=== PATIENT | female | born 1955 | race Caucasian/White ===

== ENCOUNTER 2023-03-01 06:35 | Inpatient (IN) | payer MEDICARE, MEDICAID ==
[2023-02-20 11:45] LABS: BASOPHILS % (AUTO) 0.4 % (0-1); EOSINOPHILS # (AUTO) 0.1 X10'3 (0-0.9); EOSINOPHILS % (AUTO) 0.9 % (0-6); LYMPHOCYTES # (AUTO) 1.6 X10'3 (1.1-4.8); MEAN CORPUSCULAR HEMOGLOBIN 31.1 PG (27.0-31.0); MEAN CORPUSCULAR VOLUME 94.3 FL (78-98); MEAN PLATELET VOLUME 8.5 FL (7.4-10.4); MONOCYTES # (AUTO) 0.7 X10'3 (0-0.9); MONOCYTES % (AUTO) 11.1 % (2-12); NEUTROPHILS # (AUTO) 4.1 X10'3 (1.8-7.7); NEUTROPHILS % (AUTO) 62.6 % (42-75); PRE OP HEMATOCRIT 42.4 % (35.0-45.0); PRE OP PLATELET COUNT 289 X10'3 (140-440); PRE OP WHITE BLOOD COUNT 6.6 10'3 (4.8-10.8); RED CELL DISTRIBUTION WIDTH 13.5 % (11.5-14.5)
[2023-02-20 12:08] LABS: ALBUMIN 3.9 G/DL (3.4-5.0); ALBUMIN/GLOBULIN RATIO 1.2 (1.1-1.5); ALKALINE PHOSPHATASE 58 IU/L (46-116); BLOOD UREA NITROGEN 26 MG/DL (7-18); BUN/CREATININE RATIO 27.1 (10.0-20.0); CALCIUM 9.2 MG/DL (8.5-10.1); CHLORIDE 102 MMOL/L (99-107); CREATININE 0.96 MG/DL (0.40-0.90); PRE OP ALT 24 U/L (30-65); PRE OP ANION GAP 8 (8-16); PRE OP AST 21 U/L (10-37); PRE OP BILIRUB, TOTAL 0.5 MG/DL (0.0-1.0); PRE OP GLUCOSE 87 MG/DL (70-104); PRE OP SODIUM 137 MMOL/L (135-145); THYROID STIMULATING HORMONE 0.99 ulU/ml (0.34-4.50); TOTAL CARBON DIOXIDE 27.2 MMOL/L (24-32); TOTAL PROTEIN 7.2 G/DL (6.4-8.2); eGFR 58 ML/MIN
[2023-02-20 12:19] LABS: PRE OP POTASSIUM 3.3 MMOL/L (3.4-5.1)
[2023-03-01] VITALS (28 sets, daily range): BP systolic 93–181; BP diastolic 52–85; PULSE 65–87; RESP 10–21; TEMP 97.4–98.4; O2SAT 94–100
[~2023-03-01] VITALS: Ht 162.6 cm; Wt 77.1 kg
[~2023-03-01 06:35] MED LIST: BUPR-230 PO; ESTR0.6261 PO; LEVO112T5 PO; LISI1TAB49 PO; ROBDML PO; [UNRECOGNIZED DRUG - CODE] PO; cefazolin 2gm/D5W 100mL 100 ML IV ONE; famotidine 20mg tablet PO ONE; ringers solution, lacted 1,000 ML IV SCH; tranexamic acid inj. 1,000 MG in normal saline IV soln 100ML IV ONE; vancomycin 1,500 MG in NS 300ml IV soln IV ONE
[2023-03-01] MEDS ORDERED: morphine 10mg/ml inj. ONE (07:25)
[2023-03-01] MEDS ORDERED: epiNEPHrine 1 mg/ml inj ONE (07:25)
[2023-03-01] MEDS ORDERED: ROPIVAcaine 0.5% (5mg/ml) 30ml vial ONE ×2 (07:26→11:49)
[2023-03-01] MEDS ORDERED: vancomycin 1,000mg inj ONE (07:26)
[2023-03-01] MEDS ORDERED: fentaNYL/PF 50MCG/1 ML 2ML syringe ONE (08:37)
[2023-03-01] MEDS ORDERED: MIDAZolam 1 MG/ML 5ML VIAL ONE (08:38)
[2023-03-01] MEDS ORDERED: propofol inj 20 ML IV ONE ×3 (08:39→10:36)
[2023-03-01] MEDS ORDERED: BUPIVAcaine/dex-water/PF 7.5 mg/ml 2ml ampul ONE (08:42)
[2023-03-01] MEDS ORDERED: midazolam 1 mg/ML 2ml injection ONE (09:14)
[2023-03-01] MEDS ORDERED: morphine 2 MG/ML inj. syringe IV PRN (10:30)
[2023-03-01] MEDS ORDERED: ondansetron/PF 4mg/2ml inj IV PRN ×2 (10:30→12:05)
[2023-03-01] MEDS ORDERED: proCHLORperazine 10 MG/2 ml inj IV PRN (10:30)
[2023-03-01] MEDS ORDERED: ROPIVAcaine 0.2%/PF PUMP/bolus 545 ML ADDCANAL SCH (10:30)
[2023-03-01] MEDS ORDERED: ringers solution, lacted 1,000 ML IV SCH (10:30)
[2023-03-01] MEDS ORDERED: morphine 4 MG/ML inj SYRINge IV PRN (10:30)
[2023-03-01] MEDS ORDERED: ROPIVAcaine 0.2% (10 MG/5 ML) BOLUS INJECTION ADDCANAL PRN (10:30)
[2023-03-01] MEDS ORDERED: meperidine/PF 25mg/ml syringe IV PRN ×3 (10:30)
[2023-03-01] MEDS ORDERED: naloxone 0.4 mg/ml inj IV PRN (12:05)
[2023-03-01] MEDS ORDERED: diphenhydrAMINE 25mg capsule PO PRN ×2 (12:05)
[2023-03-01] MEDS ORDERED: acetaminophen 325mg tablet PO PRN (12:05)
[2023-03-01] MEDS ORDERED: HYDROmorphone inj. 0.5 MG/0.5 ML DISP.SYRIN IV PRN (12:05)
[2023-03-01] MEDS ORDERED: magnesium hydroxide 30ml (MOM) UD suspension PO PRN (12:05)
[2023-03-01] MEDS ORDERED: bisacodyl 10mg suppository rectal RC PRN (12:05)
[2023-03-01] MEDS ORDERED: guaiFENesin/DM 10ml UD oral syrup PO PRN (12:25)
--- NOTE | 2023-03-01 13:03 | NUR ---
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 AWAITING CALL BACK. Addendum: 03/01/23 at 1304 by Holland Hargrove - BIB RN Amended: Links added.
[2023-03-01] MEDS: oxyCODONE IR 5mg (immed. release) tablet PO PRN ×2 (14:39→20:05)
[2023-03-01] MEDS ORDERED: tranexamic acid inj. 770 MG in normal saline 100ml IV soln 92.3 ML IV ONE (15:00)
--- NOTE | 2023-03-01 15:04 | NUR ---
ALL CRITERIA FOR TRANSFER TO THE FLOOR HAS BEEN MET. MEDICATED FOR PAIN AND RN AWARE PATIENT IS STILL EXPERIENCING PAIN. POSITIONED TO COMFORT. PATIENT WITH DRESSING CDI. NEW POWDER PACK IN PLACE AND MEDICATED. Addendum: 03/01/23 at 1534 by Holland Hargrove - BIB RN Amended: Links added.
[2023-03-01] MEDS: gabapentin 300mg capsule PO SCH ×2 (16:47→20:05)
[2023-03-01] MEDS: acetaminophen 325mg tablet PO SCH ×2 (16:48→20:04)
[2023-03-01] MEDS: ceFAZolin/D5W- 1GM premix 50 ML IV SCH (17:13)
[2023-03-01] MEDS: potassium Cl 20mEq in NS 1,000 ML IV SCH ×2 (17:13→20:05)
--- NOTE | 2023-03-01 18:30 | NUR ---
Patient in room ORTH[facility] 4021. I have received report from BIB Villanueva and had the opportunity to ask questions and assume patient care.
--- NOTE | 2023-03-01 18:40 | NUR ---
Report to Marie MCCARTNEY
[2023-03-01] MEDS ORDERED: vancomycin/NS 1 GM ADD-VANTAGE 250 ML IV SCH (20:00)
[2023-03-01] MEDS: buPROPion SR 150mg tablet PO SCH (20:00)
[2023-03-01] MEDS: sennosides 8.6mg tablet PO SCH (20:05)
[2023-03-02] VITALS (7 sets, daily range): BP systolic 131–139; BP diastolic 68–78; PULSE 76–105; RESP 15–18; TEMP 97.4–99.3; O2SAT 96–100
[2023-03-02] MEDS: oxyCODONE IR 5mg (immed. release) tablet PO PRN ×6 (00:03→20:47)
[2023-03-02] MEDS: ceFAZolin/D5W- 1GM premix 50 ML IV SCH (00:09)
[2023-03-02] MEDS: acetaminophen 325mg tablet PO SCH ×4 (02:27→20:44)
[2023-03-02] MEDS: potassium Cl 20mEq in NS 1,000 ML IV SCH (04:32)
--- NOTE | 2023-03-02 06:10 | NUR ---
Problems reprioritized. Patient report given, questions answered & plan of care reviewed with SHANA Graves.
[2023-03-02] MEDS: gabapentin 300mg capsule PO SCH ×3 (07:56→20:42)
[2023-03-02] MEDS: levoTHYROXINE 112mcg tablet PO SCH (07:56)
[2023-03-02] MEDS: lisinopril 10 MG tablet PO SCH (07:57)
[2023-03-02] MEDS: HYDROchlorothiazide 12.5mg capsule PO SCH (07:58)
[2023-03-02] MEDS ORDERED: estrogen, conjugated 0.625mg tablet PO SCH (08:00)
[2023-03-02] MEDS: buPROPion SR 150mg tablet PO SCH ×2 (08:00→20:00)
[2023-03-02] MEDS: METHYLPHENIDATE 5 MG PO SCH (08:00)
[2023-03-02] MEDS: enoxaparin 40mg/0.4ml syringe SQ SCH (08:00)
--- NOTE | 2023-03-02 08:17 | NUR ---
Per EMR pt POD #1 s/p left TKA. Written high protein education with ONS coupons and RD contact information mailed to patient's address found in EMR d/t short staffing. Will continue to follow and provide verbal education as able. Addendum: 03/02/23 at [address] Amended: Links added.
--- NOTE | 2023-03-02 13:00 | NUR ---
AUTOMOTIVE PROJECT ENGINEER documentation: I have reviewed and agree with all interventions, assessments performed and documented by Ely SALDANA.
--- NOTE | 2023-03-02 13:00 | NUR ---
COPY ROOM TECHNICIAN Medication Administration: For this medication-pass time frame, all medication were reviewed, dispensed, administered and documented per hospital policy by Ely SALDANA .
[2023-03-02 13:53] LABS: BASOPHILS % (AUTO) 0.1 % (0-1); EOSINOPHILS % (AUTO) 0 % (0-6); HEMATOCRIT 39.5 % (35.0-45.0); HEMOGLOBIN 12.9 g/dl (12.0-16.0); LYMPHOCYTES # (AUTO) 0.7 X10'3 (1.1-4.8); LYMPHOCYTES % (AUTO) 10.4 % (21-51); MEAN CORPUSCULAR HEMOGLOBIN 30.9 PG (27.0-31.0); MEAN CORPUSCULAR HGB CONC 32.8 g/dL (33.0-36.5); MEAN CORPUSCULAR VOLUME 94.2 FL (78-98); MEAN PLATELET VOLUME 8.8 FL (7.4-10.4); NEUTROPHILS # (AUTO) 5.4 X10'3 (1.8-7.7); NEUTROPHILS % (AUTO) 75.5 % (42-75); PLATELET COUNT 241 X10'3 (140-440); RED BLOOD COUNT 4.19 X10'6 (4.20-5.60); RED CELL DISTRIBUTION WIDTH 13.1 % (11.5-14.5); WHITE BLOOD COUNT 7.1 X10'3 (4.5-11.0)
[2023-03-02 14:07] LABS: ALANINE AMINOTRANSFERASE 22 U/L (12-78); ALBUMIN/GLOBULIN RATIO 0.9 (1.1-1.5); ALKALINE PHOSPHATASE 63 IU/L (46-116); ANION GAP 8 (8-16); ASPARTATE AMINO TRANSFERASE 19 U/L (10-37); BILIRUBIN,TOTAL 0.8 MG/DL (0.1-1.0); BLOOD UREA NITROGEN 8 MG/DL (7-18); BUN/CREATININE RATIO 8.6 (10.0-20.0); CALCIUM 8.5 MG/DL (8.5-10.1); CHLORIDE 100 MMOL/L (99-107); CREATININE 0.93 MG/DL (0.40-0.90); GLUCOSE 124 MG/DL (70-104); POTASSIUM 3.6 MMOL/L (3.5-5.1); SODIUM 135 MMOL/L (135-145); TOTAL CARBON DIOXIDE 27.2 MMOL/L (24-32); TOTAL PROTEIN 6.2 G/DL (6.4-8.2); eCRCL 50 ML/MIN; eGFR 60 ML/MIN
--- NOTE | 2023-03-02 18:40 | NUR ---
Patient in room ORTHO 4021. I have received report from JR MCCARTNEY and had the opportunity to ask questions and assume patient care.
[2023-03-02] MEDS: sennosides 8.6mg tablet PO SCH (20:46)
[2023-03-02] MEDS: celeCOXIB 100mg capsule PO SCH (20:55)
[2023-03-03] MEDS: oxyCODONE IR 5mg (immed. release) tablet PO PRN ×3 (02:18→14:49)
[2023-03-03] MEDS: acetaminophen 325mg tablet PO SCH ×2 (02:18→07:36)
[2023-03-03 06:30] LABS: WHITE BLOOD COUNT 7.6 X10'3 (4.5-11.0)
--- NOTE | 2023-03-03 06:32 | NUR ---
Problems reprioritized. Patient report given, questions answered & plan of care reviewed with JR SALDANA.
[2023-03-03 06:33] LABS: BASOPHILS % (AUTO) 0.1 % (0-1); EOSINOPHILS % (AUTO) 0.1 % (0-6); HEMATOCRIT 36.6 % (35.0-45.0); HEMOGLOBIN 12.4 g/dl (12.0-16.0); LYMPHOCYTES # (AUTO) 0.7 X10'3 (1.1-4.8); LYMPHOCYTES % (AUTO) 9.7 % (21-51); MEAN CORPUSCULAR HEMOGLOBIN 31.8 PG (27.0-31.0); MEAN CORPUSCULAR HGB CONC 33.8 g/dL (33.0-36.5); MEAN CORPUSCULAR VOLUME 94.3 FL (78-98); MEAN PLATELET VOLUME 8.4 FL (7.4-10.4); MONOCYTES # (AUTO) 1.1 X10'3 (0-0.9); MONOCYTES % (AUTO) 14.1 % (2-12); NEUTROPHILS # (AUTO) 5.8 X10'3 (1.8-7.7); PLATELET COUNT 220 X10'3 (140-440); RED BLOOD COUNT 3.88 X10'6 (4.20-5.60); RED CELL DISTRIBUTION WIDTH 13.4 % (11.5-14.5)
[2023-03-03 06:52] LABS: ALANINE AMINOTRANSFERASE 24 U/L (12-78); ALBUMIN 2.7 G/DL (3.4-5.0); ALBUMIN/GLOBULIN RATIO 0.8 (1.1-1.5); ALKALINE PHOSPHATASE 60 IU/L (46-116); ANION GAP 6 (8-16); ASPARTATE AMINO TRANSFERASE 23 U/L (10-37); BILIRUBIN,TOTAL 0.7 MG/DL (0.1-1.0); BLOOD UREA NITROGEN 13 MG/DL (7-18); BUN/CREATININE RATIO 12.5 (10.0-20.0); CALCIUM 8.9 MG/DL (8.5-10.1); CHLORIDE 101 MMOL/L (99-107); CREATININE 1.04 MG/DL (0.40-0.90); GLUCOSE 109 MG/DL (70-104); POTASSIUM 3.5 MMOL/L (3.5-5.1); SODIUM 137 MMOL/L (135-145); TOTAL CARBON DIOXIDE 30.1 MMOL/L (24-32); TOTAL PROTEIN 6.2 G/DL (6.4-8.2); eCRCL 45 ML/MIN; eGFR 53 ML/MIN
[2023-03-03 07:00] VITALS: BP 105/67; PULSE 95; RESP 18; TEMP 97.6; O2SAT 94
[2023-03-03] MEDS: enoxaparin 40mg/0.4ml syringe SQ SCH (07:29)
[2023-03-03] MEDS: buPROPion SR 150mg tablet PO SCH ×2 (07:30→20:00)
[2023-03-03] MEDS: HYDROchlorothiazide 12.5mg capsule PO SCH (07:30)
[2023-03-03] MEDS: celeCOXIB 100mg capsule PO SCH ×2 (07:30→20:54)
[2023-03-03] MEDS: lisinopril 10 MG tablet PO SCH (07:31)
[2023-03-03] MEDS: gabapentin 300mg capsule PO SCH (07:32)
[2023-03-03] MEDS: levoTHYROXINE 112mcg tablet PO SCH (07:32)
[2023-03-03] MEDS: estrogen, conjugated 0.625mg tablet PO SCH (07:37)
[2023-03-03] MEDS: METHYLPHENIDATE 5 MG PO SCH (07:38)
[2023-03-03 10:00] VITALS: BP 121/75; PULSE 78; RESP 15; TEMP 98.3; O2SAT 98
[2023-03-03] MEDS ORDERED: acetaminophen 325mg tablet PO PRN (12:05)
[2023-03-03] MEDS ORDERED: gabapentin 300mg capsule PO SCH (14:32)
[2023-03-03 15:00] VITALS: BP 119/70; PULSE 70; RESP 17; TEMP 97; O2SAT 97
--- NOTE | 2023-03-03 15:00 | NUR ---
JOCKEY VALET Medication Administration: For this medication-pass time frame, all medication were reviewed, dispensed, administered and documented per hospital policy by Ely SALDANA.
[2023-03-03 18:00] VITALS: BP 128/51; PULSE 94; RESP 13; TEMP 98.7; O2SAT 98
--- NOTE | 2023-03-03 18:00 | NUR ---
Patient in room ORTHO 4021. I have received report from SHANA Graves and had the opportunity to ask questions and assume patient care.
[2023-03-03 20:00] VITALS: RESP 18; O2SAT 98
[2023-03-03] MEDS: sennosides 8.6mg tablet PO SCH (20:53)
[2023-03-03 22:00] VITALS: BP 98/41; PULSE 91; RESP 16; TEMP 98.1; O2SAT 94
[2023-03-04 06:00] VITALS: BP 125/64; PULSE 89; RESP 16; TEMP 98.8; O2SAT 98
[2023-03-04 06:05] LABS: ALANINE AMINOTRANSFERASE 19 U/L (12-78); ALBUMIN 2.4 G/DL (3.4-5.0); ALBUMIN/GLOBULIN RATIO 0.6 (1.1-1.5); ALKALINE PHOSPHATASE 59 IU/L (46-116); ANION GAP 7 (8-16); ASPARTATE AMINO TRANSFERASE 15 U/L (10-37); BILIRUBIN,TOTAL 0.6 MG/DL (0.1-1.0); BLOOD UREA NITROGEN 20 MG/DL (7-18); BUN/CREATININE RATIO 20.8 (10.0-20.0); CALCIUM 8.7 MG/DL (8.5-10.1); CHLORIDE 101 MMOL/L (99-107); CREATININE 0.96 MG/DL (0.40-0.90); GLUCOSE 95 MG/DL (70-104); POTASSIUM 3.5 MMOL/L (3.5-5.1); SODIUM 135 MMOL/L (135-145); TOTAL CARBON DIOXIDE 27.3 MMOL/L (24-32); TOTAL PROTEIN 6.1 G/DL (6.4-8.2); eCRCL 48 ML/MIN; eGFR 58 ML/MIN
[2023-03-04 06:11] LABS: BASOPHILS % (AUTO) 0.1 % (0-1); EOSINOPHILS % (AUTO) 0.3 % (0-6); HEMATOCRIT 32.7 % (35.0-45.0); LYMPHOCYTES # (AUTO) 0.9 X10'3 (1.1-4.8); LYMPHOCYTES % (AUTO) 12.6 % (21-51); MEAN CORPUSCULAR HEMOGLOBIN 31.4 PG (27.0-31.0); MEAN CORPUSCULAR HGB CONC 33.6 g/dL (33.0-36.5); MEAN CORPUSCULAR VOLUME 93.4 FL (78-98); MEAN PLATELET VOLUME 8.9 FL (7.4-10.4); MONOCYTES # (AUTO) 0.9 X10'3 (0-0.9); MONOCYTES % (AUTO) 13.4 % (2-12); NEUTROPHILS # (AUTO) 5.1 X10'3 (1.8-7.7); NEUTROPHILS % (AUTO) 73.6 % (42-75); PLATELET COUNT 207 X10'3 (140-440)
--- NOTE | 2023-03-04 06:49 | NUR ---
Problems reprioritized. Patient report given, questions answered & plan of care reviewed with SHANA NORRIS.
[2023-03-04 07:45] VITALS: BP_SYST 121; PULSE 77
[2023-03-04] MEDS: HYDROchlorothiazide 12.5mg capsule PO SCH (07:45)
[2023-03-04] MEDS: celeCOXIB 100mg capsule PO SCH (07:45)
[2023-03-04] MEDS: lisinopril 10 MG tablet PO SCH (07:45)
[2023-03-04] MEDS: oxyCODONE IR 5mg (immed. release) tablet PO PRN (07:46)
[2023-03-04] MEDS: buPROPion SR 150mg tablet PO SCH (07:46)
[2023-03-04 08:00] VITALS: RESP 16
[2023-03-04] MEDS: levoTHYROXINE 112mcg tablet PO SCH (08:00)
[2023-03-04] MEDS: estrogen, conjugated 0.625mg tablet PO SCH (08:00)
[2023-03-04] MEDS: enoxaparin 40mg/0.4ml syringe SQ SCH (08:00)
[2023-03-04 10:44] VITALS: RESP 16
--- NOTE | 2023-03-04 10:51 | NUR ---
Patient walked 400 feet with physical therapy. Patient denies any pain at this time. Md/ Surgeon gave verbal order to discharge patient when patient was ready.
[2023-03-04] MEDS ORDERED: CEPH-585 PO (12:57)
[2023-03-04] MEDS ORDERED: CEPH500C2 PO (13:34)
--- NOTE | 2023-03-04 13:37 | NUR ---
Patient left Hospital at 1300. Knee immobilizer placed on patient per doctor Rodriguez. Keflex ordered per MD and sent to pharmacy for patient. Patients leg wrapped with new dressings. supplies left with patient. All personal belongings left with patient. All paper work including medicare paper work signed by patient.
== END 2023-03-04 13:00 | disposition home health service (06) | DRG 470 ==
LOC: PAS IN 06:35 → ORTHO 4S 15:15
PROVIDERS: ADMIT Orthopaedic Surgery; ATTEND Orthopaedic Surgery
PROC: 3E0T3BZ Introduction of Anesthetic Agent into Peripheral Nerves and Plexi, Percutaneous Approach (ICD-10-PCS; 2023-03-01)
PROC: 0SRD0J9 Replacement of Left Knee Joint with Synthetic Substitute, Cemented, Open Approach (ICD-10-PCS; principal; 2023-03-01 08:42)
DX: M17.12 Unilateral primary osteoarthritis, left knee (principal)
CPT/HCPCS: 36415; 73560; 80053; 82948; 84443; 85025; 87081; 97110; 97116; 97161; 97530; A4215; A6253; A6258; A6446; A6449; A7000; C1713; C1758; C1776; C9250; G0378; J0171; J0690; J1650; J2250; J2270; J2274; J2704; J2795; J3010; J3370; J3480; J3490; J7030; J7120